=== PATIENT | male | born 1990 | race Two or more races ===

== ENCOUNTER → 2022-03-25 | Outpatient (CLI) | payer OTHER | LOC: M RAD 14:17 | DX: M51.27 Other intervertebral disc displacement, lumbosacral region (principal) ==

== ENCOUNTER 2022-11-16 07:48 | Day surgery (SDC) | payer OTHER ==
[~2022-11-16] VITALS: Ht 182.9 cm; Wt 105.9 kg
[2022-11-16] MEDS ORDERED: LR 1,000 ML IV SCH ×4 (08:15→12:45)
[2022-11-16] MEDS ORDERED: MIDAZOLAM INJ 2MG/2ML VIAL As Ordered ONE (08:36)
[2022-11-16] MEDS ORDERED: propofoL 200 MG/20 ML VIAL As Ordered ONE (08:37)
[2022-11-16] MEDS ORDERED: ROCURONIUM BROMIDE 50MG/5ML VIAL As Ordered ONE (08:37)
[2022-11-16] MEDS ORDERED: LIDOCAINE 2% 100MG/5ML SDV (FOR ANES.) As Ordered ONE (08:37)
[2022-11-16] MEDS ORDERED: fentaNYL 100 MCG/2 ML INJECTION As Ordered ONE (08:37)
[2022-11-16] MEDS ORDERED: SUGAMMADEX SODIUM 500 MG/5 ML VIAL (BRIDION) As Ordered ONE (08:37)
[2022-11-16] MEDS ORDERED: ONDANSETRON 4MG 2ML VIAL As Ordered ONE (08:37)
[2022-11-16] MEDS ORDERED: LIDOCAINE W/EPINEPHRINE 1% 20ML VIAL As Ordered ONE ×2 (09:01→10:02)
[2022-11-16] MEDS ORDERED: OXYMETAZOLINE 0.05% NASAL SPRAY (AFRIN) As Ordered ONE (09:01)
[2022-11-16] MEDS ORDERED: COCAINE 4% 4ML NASAL SOLUTION BTL As Ordered ONE (09:02)
[2022-11-16] MEDS ORDERED: ACETAMINOPHEN 1000MG 100ML IV BAG As Ordered ONE (09:29)
[2022-11-16] MEDS ORDERED: HYDROMORPHONE HCL 0.5 MG/ 0.5 ML SYRINGE IV PRN ×2 (10:15→12:45)
[2022-11-16] MEDS ORDERED: ONDANSETRON 4MG 2ML VIAL IV PRN ×3 (10:15→12:45)
[2022-11-16] MEDS ORDERED: oxyCODONE 5MG TAB PO PRN ×2 (10:15→12:45)
[2022-11-16] MEDS: fentaNYL 100 MCG/2 ML INJECTION IV PRN ×2 (11:03→11:07)
[2022-11-16] MEDS ORDERED: ANEXSIA, NORCO 7.5MG/325MG TABLET(HYDROCODONE/APAP) PO PRN (11:30)
[2022-11-16] MEDS ORDERED: fentaNYL 100 MCG/2 ML INJECTION IV PRN (12:45)
[2022-11-16 14:35] VITALS: BP 158/92; TEMP 98.2; O2SAT 97
== END 2022-11-16 14:40 | disposition home or self-care (01) ==
LOC: M SDC 07:48
PROVIDERS: ATTEND Otolaryngology
DX: J34.2 Deviated nasal septum (principal); J34.3 Hypertrophy of nasal turbinates
CPT/HCPCS: 30140; 30520; C9143; J0131; J1100; J2250; J2405; J3010